=== PATIENT | female | born 1955 | race American Indian/Alaskan Native ===

== ENCOUNTER 2017-10-11 08:07 | Outpatient (CLI) | payer MEDICAID ==
--- NOTE | 2017-10-11 12:00 | Short Stay Summary ---
Short Stay Documentation Date of service: 10/11/17 - History Principal diagnosis: thyromegaly, thyroid nodules - Allergies and Medications Current Medications: Allergies No Known Allergies Allergy (Verified 10/11/17 09:40) - Physical exam HEENT: Other (prominent thyroid gland resembling a goiter) - Brief post op/procedure progress note Date of procedure: 10/11/17 Pre-op diagnosis: thyroid nodules Post-op diagnosis: same Procedure: US thyroid biopsy Anesthesia: local Findings: dominant nodule in left thryoid biopsied Surgeon: SHARONA SHAIKH Estimated blood loss: none Pathology: list (FNA x 1, rotex biopsy x 1) Specimen disposition: to lab Condition: stable - Disposition Condition at discharge: Good Disposition: [id number] TO HOME OR SELFCARE Short Stay Discharge Plan Follow up with: KETAN ELLISON MD [Primary Care Provider] - 7 Days
--- NOTE | 2017-10-11 12:36 | Ultrasound Report ---
ULTRASOUND BIOPSY THYROID History: Localized swelling, mass and lump, and neck. Description of procedure: The initial scan of the thyroid gland demonstrates thyromegaly. The right lobe measures 6.3 x 2.4 x 4.0 cm. The left lobe measures 7.2 x 3.8 x 4.3 cm. The isthmus measures 1.1 cm. 3 right lobe nodules, one isthmus nodule and one large left lobe nodule is identified. The dominant nodule in the left thyroid lobe measuring 5.3 x 3.1 x 5.0 cm was selected for biopsy. Informed consent was obtained. Sterile technique was utilized. 1% lidocaine for skin anesthesia. Using ultrasound guidance, one fine needle aspiration and one Rotex biopsy was obtained from the dominant left lobe nodule. The samples were deemed adequate by the pathologist on site. No complications. Impression: Ultrasound-guided fine needle aspiration and biopsy of a left thyroid lobe lesion as described.
--- NOTE | 2017-10-11 12:46 | Cat Scan Report ---
CT NECK WITH AND WITHOUT CONTRAST HISTORY: Localized swelling, mass and lump, neck TECHNIQUE: Helical CT before and after IV contrast. Sagittal and coronal reformatted images. FINDINGS: No previous exam at this facility. The thyroid gland is markedly enlarged. The right lobe measures 8.9 cm in length. The left lobe measures 7.8 cm in length. There are approximately 3 nodules in the right lobe with the largest measuring 3.3 cm. A nodule in the left side of the isthmus measures 1.9 cm. The largest nodule in the left thyroid lobe measures 5.4 cm. All nodules demonstrate heterogeneous enhancement with small hypodense or cystic areas following IV contrast. There are a few scattered macrocalcifications bilaterally. No evidence for cervical lymphadenopathy, fluid collection or inflammatory changes. The imaged brain is unremarkable. Prevertebral soft tissues are within normal limits. The vascular structures are patent. The trachea is patent. Mild multilevel degenerative disc disease is noted throughout the cervical spine. IMPRESSION: Thyromegaly with multiple bilateral heterogeneous thyroid nodules/masses. The overall appearance is most consistent with a multinodular goiter.
[2017-10-11 16:17] VITALS: BP 139/39
== END 2017-10-11 12:00 | disposition home or self-care (01) ==
LOC: CT 08:07
PROVIDERS: ATTEND Otolaryngology
DX: E01.0 Iodine-deficiency related diffuse (endemic) goiter (principal); E07.89 Other specified disorders of thyroid; M50.30 Other cervical disc degeneration, unspecified cervical region
CPT/HCPCS: 36415; 60100; 70492; 76942; 82565; 84520; 88112; 88172; 88173; 88305; Q9967

== ENCOUNTER 2018-10-24 12:50 | Day surgery (SDC) | payer MEDICAID ==
--- NOTE | 2018-10-24 10:05 | Anesthesia Day of Surgery ---
<APPLE MONACO - Last Filed: 10/24/18 10:05> Anesthesia Day of Surgery - Day of Surgery Patient Examined: Yes Patient H&P Reviewed: Yes Patient is NPO: Yes <RICHARD RDZ - Last Filed: 10/24/18 13:54> Anesthesia Day of Surgery - Day of Surgery Patient Examined: Yes Patient H&P Reviewed: Yes Patient is NPO: Yes
--- NOTE | 2018-10-24 10:06 | Anesthesia Consultation ---
<APPLE MONACO - Last Filed: 10/24/18 10:05> Anesthesia Consult and Med Hx Date of service: 10/24/18 - Airway Intubation Access Assessment: Probably Good - Pre-Operative Health Status ASA Pre-Surgery Classification: ASA2 Proposed Anesthetic Plan: MAC - Pulmonary Hx Smoking: Yes - Cardiovascular System Hx Hypertension: Yes - Central Nervous System Hx Psychiatric Problems: No - Endocrine Hx Hyperthyroidism: Yes - Other Systems Hx Cancer: No <RICHARD RDZ - Last Filed: 10/24/18 13:53> Anesthesia Consult and Med Hx - Airway Anesthetic Teeth Evaluation: Poor (multiple missing, chipped, loose teeth on the bottom), Edentulous (on the top) ROM Head & Neck: Adequate Mental/Hyoid Distance: Adequate Mallampati Class: Class II Intubation Access Assessment: Probably Good - Pulmonary Hx Smoking: Yes (Quit 2004, 1/2 pack/day x 25 years) - Endocrine Hx Hypothyroidism: Yes (s/p thyroidectomy) Hx Hyperthyroidism: No
[~2018-10-24 12:50] MED LIST: NACL 0.9% 1000 ML 1,000 ML IV SCH
[2018-10-24] MEDS ORDERED: XYLOCAINE MPF 2% ONE (16:00)
[2018-10-24] MEDS ORDERED: DIPRIVAN 10 MG/ML IV ONE ×2 (16:22)
[2018-10-24] MEDS ORDERED: WATER FOR IRRIG STERILE ONE (16:35)
--- NOTE | 2018-10-24 16:54 | Operative Report ---
Operative Report Operative Report: Date of procedure: 10/24/2018 Procedure: Colonoscopy. Attending physician: Zackery Linares MD Automat Watcher: Zackery Linares MD Indication: Patient is a 63-year-old female who presents for colonoscopy for colorectal cancer screening. A colonoscopy serves to evaluate patient so that treatment may be directed based on the findings. Consent: Informed consent was obtained after advising the patient and family regarding nature of this procedure, its indications, potential benefits as well as possible complications including but not limited to bleeding perforation and adverse reaction to medication, infection as well as other cardiopulmonary complications. An informed written and verbal consent was then obtained after due opportunity was provided for questions and answers. Monitoring: Patient was monitored continuously with pulse oximetry and electrocardiographic recordings as well as blood pressure recordings. Vital signs remained stable throughout this procedure with no untoward events. Preoperative assessment: Patient was assessed immediately prior to this procedure for capacity to tolerate monitored anesthesia care and moderate sedation as well as general anesthesia. Patient's ASA classification is 2, Mallampati class is 2, Hyomental distance is 3. Instrument: Olympus video colonoscope Medications: Propofol given intravenously in divided doses. For details please refer to anesthesia records. Description of procedure: Patient was placed in the left lateral decubitus position after achieving sedation, a digital rectal examination was performed following which the colonoscope was introduced into the anal verge and advanced to the cecum which was identified by the ileocecal valve, the appendiceal orifice, as well as by the cecal strap and direct transillumination. The colonoscope was subsequently withdrawn with careful inspection of all mucosal surfaces. Patient tolerated this procedure well and was subsequently taken to the recovery room. The following findings were noted. Findings: Patient had diverticulosis of mild to moderate severity, involving the sigmoid colon and descending colon and ascending colon. The preparation was adequate. On the retroflex view at the anal verge, patient had internal hemorrhoids. Impression: Colonic diverticulosis Internal hemorrhoids . Plan: High-fiber diet. Repeat colonoscopy in 10 years.
--- NOTE | 2018-10-24 16:55 | Discharge Summary ---
Short Stay Discharge Plan Activity: advance as tolerated Weight Bearing Status: Weight Bear as Tolerated Diet: regular Follow up with: KETAN ELLISON MD [Primary Care Provider] - 7 Days
[2018-10-24 17:20] VITALS: BP 155/77
== END 2018-10-24 12:51 | disposition home or self-care (01) ==
LOC: GIO 12:50
PROVIDERS: ATTEND Internal Medicine Gastroenterology
DX: Z12.11 Encounter for screening for malignant neoplasm of colon (principal); K64.8 Other hemorrhoids; K57.30 Diverticulosis of large intestine without perforation or abscess without bleeding; I11.0 Hypertensive heart disease with heart failure; I50.9 Heart failure, unspecified; E89.0 Postprocedural hypothyroidism; Z90.710 Acquired absence of both cervix and uterus; Z98.890 Other specified postprocedural states; Z79.899 Other long term (current) drug therapy; Z87.891 Personal history of nicotine dependence
CPT/HCPCS: 45378; J2704; J7030